=== PATIENT | male | born 1980 | race Caucasian/White ===

== ENCOUNTER 2021-05-10 19:51 | Emergency (ER) | payer BC ==
[~2021-05-10] VITALS: Ht 177.8 cm; Wt 96.2 kg
[~2021-05-10 19:51] MED LIST: CARAFATE1 GM PO; PROTONIX40 MG PO; ZOFRAN4 MG PO
== END 2021-05-10 22:45 | disposition home or self-care (01) ==
LOC: ER1 19:51
DX: U07.1 COVID-19 (principal); Z23 Encounter for immunization; I10 Essential (primary) hypertension
CPT/HCPCS: 99283; M0243